=== PATIENT | female | born 1970 | race African-American/Black ===

== ENCOUNTER 2019-02-13 18:07 | Emergency (ER) | payer OTHER ==
[~2019-02-13] VITALS: Ht 165.1 cm; Wt 104.3 kg
[2019-02-13] MEDS ORDERED: NKM (18:16)
--- NOTE | 2019-02-13 18:51 | Emergency Room Report ---
History of Present Illness General Chief Complaint: Skin Rash/Abscess Source: Patient Present Illness HPI 48-year-old female with no significant past medical history here complaining of multiple insect bites on left arm that started today at work and now feeling tingling sensation in his arm and fingers. Denies fever and chills, complains of pruritus and minimal pain at the site of bites. Denies shortness of breath, anaphylaxis, chest pain, nausea vomiting, palpitation, no other associated symptoms. Has been taking Zyrtec with symptom relief. Denies fall or injury. Denies history of diabetes. Allergies: Coded Allergies: No Known Allergies (Unverified , 02/13/19) Patient History Past Medical History: see triage record Past Surgical History: unable to obtain Pertinent Family History: none Last Menstrual Period: n/a Now: No Immunizations: UTD Reviewed Nursing Documentation: PMH: Agreed; PSxH: Agreed Nursing Documentation-PMH Past Medical History: No Stated History Review of Systems All Other Systems: negative except mentioned in HPI Physical Exam Vital Signs Date Time Temp Pulse Resp B/P (MAP) Pulse Ox O2 Delivery O2 Flow Rate FiO2 02/13/19 18:11 98.2 86 18 140/96 (111) 97 Room Air Sp02 EP Interpretation: reviewed, normal General Appearance: no apparent distress, alert, GCS 15, non-toxic Head: normocephalic, atraumatic Eyes: bilateral eye normal inspection, bilateral eye PERRL ENT: hearing grossly normal, normal pharynx, no angioedema, normal voice Neck: full range of motion, supple/symm/no masses Respiratory: chest non-tender, lungs clear, normal breath sounds, no rhonchi, speaking full sentences Cardiovascular #1: regular rate, rhythm, no edema, no murmur Cardiovascular #2: 2+ radial (R), 2+ radial (L) Gastrointestinal: normal bowel sounds, non tender, soft, non-distended, no guarding, no rebound Genitourinary: no CVA tenderness Musculoskeletal: back normal, gait/station normal, normal range of motion, non- tender Neurologic: alert, oriented x3, responsive, motor strength/tone normal, sensory intact, speech normal Psychiatric: judgement/insight normal, memory normal, mood/affect normal, no suicidal/homicidal ideation Skin: other - Multiple insect bites on left arm appeared to be somewhat infected and warm to touch without any pus drainage Lymphatic: normal inspection Medical Decision Making PA Attestation All my diagnosis and treatment plans were reviewed ad discussed with my supervising physician Dr. Lei Diagnostic Impression: Primary Impression: Infected insect bite ER Course 48-year-old female with no significant past medical history here complaining of multiple insect bites on left arm that started today at work and now feeling tingling sensation in his arm and fingers. Denies fever and chills, complains of pruritus and minimal pain at the site of bites. Denies shortness of breath, anaphylaxis, chest pain, nausea vomiting, palpitation, no other associated symptoms. Has been taking Zyrtec with symptom relief. Denies fall or injury. Denies history of diabetes. Ddx considered but are not limited to: Eczema, scabies, lice, noninfected insect bite, infected insect bite Vital signs: are WNL, pt. is afebrile H&PE are most consistent with: Infected insect bite ORDERS: Hydrocortisone cream, Benadryl, Keflex ED INTERVENTIONS: None required at this time. DISCHARGE: At this time pt. is stable for d/c to home. Will provide printed patient care instructions, and any necessary prescriptions. Care plan and follow up instructions have been discussed with the patient prior to discharge patient to follow-up with primary care provider if worsening symptoms return to the emergency room patient was concerned about taking patient however reported that if she continues to have tingling sensation she can return to the emergency room 4 to 48 hours. Stable vital signs, nothing to suggest neuropathy , possible infection causing anxiety as well as pleuritis being mistaken as paresthesia. Patient has full range of motion, and sensory is intact Last Vital Signs Date Time Temp Pulse Resp B/P (MAP) Pulse Ox O2 Delivery O2 Flow Rate FiO2 02/13/19 18:11 98.2 86 18 140/96 (111) 97 Room Air Disposition: HOME, SELF-CARE Condition: Stable Scripts Diphenhydramine HCl (Benadryl) 25 Mg Capsule 25 MG PO BID, #20 CAP Prov: Werner Estevez 02/13/19 Hydrocortisone/Aloe Vera 1%* (HYDROCORTISONE-ALOE 1% CREAM*) Y Cr 1 APPLIC TOPIC Q6H PRN for Itching, #30 GM Prov: Werner Estevez 02/13/19 Cephalexin* (KEFLEX*) 500 Mg Capsule 500 MG ORAL EVERY 6 HOURS for 7 Days, #28 CAP Prov: Werner Estevez 02/13/19 Patient Instructions: Insect Bite Additional Instructions: Take medication as ordered, follow-up with your primary care provider, if worsening symptoms return to the emergency room Werner Estevez Feb 13, 2019 18:51
[2019-02-13] MEDS ORDERED: CEPHALEXIN500 MG ORAL (18:52)
[2019-02-13] MEDS ORDERED: HYDROCORTISONE-30 GM TOPIC (18:52)
[2019-02-13] MEDS ORDERED: BENADRYL25 M3 PO (18:52)
--- NOTE | 2019-02-13 19:00 | NUR ---
ER DISCHARGE NOTE: Patient is cleared to be discharged per ERMD, pt is aox4, on room air, with stable vital signs. pt was given dc and prescription instructions, pt was able to verbalize understanding, pt is able to ambulate with steady gait. pt took all belongings.
[2019-02-13 19:11] VITALS: BP 140/96
== END 2019-02-13 19:11 | disposition home or self-care (01) ==
LOC: EMR 18:55
DX: S40.862A Insect bite (nonvenomous) of left upper arm, initial encounter (principal); L08.9 Local infection of the skin and subcutaneous tissue, unspecified; W57.XXXA Bitten or stung by nonvenomous insect and other nonvenomous arthropods, initial encounter; Y92.9 Unspecified place or not applicable; Y99.0 Civilian activity done for income or pay
CPT/HCPCS: 99282

== ENCOUNTER 2019-07-11 11:48 | Emergency (ER) | payer OTHER ==
[~2019-07-11] VITALS: Ht 165.1 cm; Wt 99.8 kg
[~2019-07-11 11:48] MED LIST: BENADRYL25 M3 PO; CEPHALEXIN500 MG ORAL; HYDROCORTISONE-30 GM TOPIC; NKM
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
[2019-07-11 12:07] VITALS: BP 120/81
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
[2019-07-11] MEDS ORDERED: LIDODERM700 M1 TOPIC (12:17)
[2019-07-11] MEDS ORDERED: IBUPROFEN600 MG ORAL (12:17)
[2019-07-11] MEDS ORDERED: ROBAXIN-500MG ORAL (12:17)
[2019-07-11 12:27] VITALS: BP 118/80
--- NOTE | 2019-07-11 12:27 | NUR ---
ER DISCHARGE NOTE: Patient is cleared to be discharged per ERMD, pt is aox4, on room air, with stable vital signs. pt was given dc and prescription instructions, pt was able to verbalize understanding, pt id band removed. pt is able to ambulate with steady gait. pt took all belongings.
== END 2019-07-11 12:27 | disposition home or self-care (01) ==
LOC: EMR 12:06
DX: S16.1XXA Strain of muscle, fascia and tendon at neck level, initial encounter (principal); S00.93XA Contusion of unspecified part of head, initial encounter; V43.62XA Car passenger injured in collision with other type car in traffic accident, initial encounter; Y92.410 Unspecified street and highway as the place of occurrence of the external cause
CPT/HCPCS: 99282